=== PATIENT | female | born 1970 | race Caucasian/White ===

== ENCOUNTER 2016-05-27 23:33 | Emergency (ER) | payer BC ==
[~2016-05-27] VITALS: Ht 149.9 cm; Wt 75.7 kg
[2016-05-27 23:55] LABS: MCH 30.1 PG (29.0-34.0); MCHC 33.8 G/DL (30.0-36.0); MCV 88.8 FL (83-99); MEAN PLAT.VOLUME 11.2 uM^3 (9.5-12.4); PLATELET COUNT 263 K/uL (156-360); RBC DIS.WIDTH-CV 12.5 % (11.8-14.6); RBC DIS.WIDTH-SD 40.8 % (39-53); RED BLOOD COUNT 4.39 M/uL (3.80-5.20); WHITE BLOOD COUNT 9.1 K/uL (4.1-10.2)
[2016-05-28 00:10] LABS: CHLORIDE 108 mEq/L (99-109); POTASSIUM 3.6 mEq/L (3.7-5.4); SODIUM 139 mEq/L (136-147)
[2016-05-28 00:12] LABS: GLUCOSE 98 mg/dL (70-99)
[2016-05-28 00:13] LABS: ANION GAP 9 MEQ/L (2-14)
[2016-05-28 00:14] LABS: TOTAL BILIRUBIN 0.3 mg/dL (0.0-1.0)
[2016-05-28 00:15] LABS: ALKALINE PHOSPHATASE 91 IU/L (3-129)
[2016-05-28 00:16] LABS: GFR ESTIMATE (CALCULATED) > 59 mL/min/
[2016-05-28 00:17] LABS: UREA NITROGEN (BUN) 15 mg/dL (9-23)
[2016-05-28 00:27] LABS: QUANTITATIVE HCG < 4.0 MIU/ML
[2016-05-28] MEDS ORDERED: ZOFRAN ODT4 MG PO (01:30)
[2016-05-28] MEDS ORDERED: PERCOCET 5/31 TABLET PO (01:30)
[2016-05-28 01:49] LABS: ADD MIUA? YES; BILIRUBIN NEGATIVE; BLOOD SMALL; COLOR AMBER ((YELLOW)); GLUCOSE (STRIP) NEGATIVE; KETONES 5; LEUKOCYTES TRACE; NITRITE NEGATIVE; PROTEIN (STRIP) 100; SPECIFIC GRAVITY 1.031 (1.000-1.030)
[2016-05-28 01:56] LABS: BACTERIA RARE /HPF; CALCIUM OXALATE CRYSTALS 3+ /HPF; EPITHELIAL CELLS 1+ /HPF; HYALINE CASTS 0-5 /LPF; MUCUS 3+ /LPF; RED BLOOD CELLS 20-30 /HPF (0-5); UCUL ADDED? NO
[2016-05-28 02:00] VITALS: BP 140/95
[2016-05-28] MEDS ORDERED: CIPRO500 MG PO (02:00)
== END 2016-05-28 02:01 | disposition home or self-care (01) ==
LOC: EME 23:33 → RME 23:33
DX: N13.2 Hydronephrosis with renal and ureteral calculous obstruction (principal); N83.201 Unspecified ovarian cyst, right side; R11.2 Nausea with vomiting, unspecified; Z87.891 Personal history of nicotine dependence
CPT/HCPCS: 74176; 80053; 81003; 84702; 85027; 99281; 99285; J1885; J2270; J2405; J7030

== ENCOUNTER 2017-09-02 18:54 | Emergency (ER) | payer BC ==
[~2017-09-02] VITALS: Ht 149.9 cm; Wt 76.5 kg
[~2017-09-02 18:54] MED LIST: CIPRO500 MG PO; PERCOCET 5/31 TABLET PO; ZOFRAN ODT4 MG PO
[2017-09-02 19:37] LABS: HEMATOCRIT 36.6 % (36.0-46.0); HEMOGLOBIN 12.8 G/DL (11.9-15.5); MCH 31.9 PG (29.0-34.0); MCV 91.3 FL (83-99); PLATELET COUNT 256 K/uL (156-360); RBC DIS.WIDTH-CV 12.8 % (11.8-14.6); RBC DIS.WIDTH-SD 42.2 % (39-53); RED BLOOD COUNT 4.01 M/uL (3.80-5.20); WHITE BLOOD COUNT 9.5 K/uL (4.1-10.2)
[2017-09-02 19:52] LABS: CHLORIDE 110 mEq/L (99-109); POTASSIUM 4.5 mEq/L (3.7-5.4); SODIUM 141 mEq/L (136-147)
[2017-09-02 19:54] LABS: GLUCOSE 96 mg/dL (70-99)
[2017-09-02 19:58] LABS: CREATININE 1.1 mg/dL (0.6-1.3); GFR ESTIMATE (CALCULATED) 56 mL/min/
[2017-09-02 19:59] LABS: UREA NITROGEN (BUN) 29 mg/dL (9-23)
[2017-09-02 20:18] LABS: APPEARANCE CLEAR ((CLEAR)); BILIRUBIN NEGATIVE; BLOOD SMALL; COLOR YELLOW ((YELLOW)); GLUCOSE (STRIP) NEGATIVE; KETONES NEGATIVE; LEUKOCYTES TRACE; NITRITE NEGATIVE; PROTEIN (STRIP) NEGATIVE; SPECIFIC GRAVITY 1.021 (1.000-1.030)
[2017-09-02 20:31] LABS: BACTERIA NONE SEEN /HPF; EPITHELIAL CELLS 1+ /HPF; MUCUS TRACE /LPF; UCUL ADDED? NO; WHITE BLOOD CELLS 0-5 /HPF (0-5)
[2017-09-02 20:34] LABS: ALBUMIN 4.3 g/dL (3.2-4.8)
[2017-09-02 20:37] LABS: TOTAL PROTEIN 7.7 g/dL (6.4-8.3)
[2017-09-02 20:38] LABS: TOTAL BILIRUBIN 0.3 mg/dL (0.0-1.0)
[2017-09-02 20:39] LABS: ALKALINE PHOSPHATASE 116 IU/L (3-129)
[2017-09-02 20:42] LABS: AST (GOT) 19 IU/L (2-34); DIRECT BILIRUBIN 0.1 mg/dL (0.0-0.3)
[2017-09-02 20:43] LABS: ALT (GPT) 22 IU/L (3-49)
[2017-09-02 20:49] LABS: QUANTITATIVE HCG 4.3 MIU/ML
[2017-09-02] MEDS ORDERED: KEFLEX500 MG PO (22:18)
[2017-09-02] MEDS ORDERED: PERCOCET 5/31 TABLET PO (22:18)
[2017-09-02 22:58] VITALS: BP 133/72
== END 2017-09-02 22:58 | disposition home or self-care (01) ==
LOC: RME 18:54 → EME 18:54 → RME 22:58
DX: N39.0 Urinary tract infection, site not specified (principal); Z87.442 Personal history of urinary calculi; F17.200 Nicotine dependence, unspecified, uncomplicated; Z88.2 Allergy status to sulfonamides
CPT/HCPCS: 76770; 80048; 80076; 81003; 84702; 85027; 87086; 99281; 99284; J1885